=== PATIENT | male | born 1960 | race Asian ===

== ENCOUNTER 2017-09-08 12:48 | Outpatient (CLI) | payer OTHER ==
[2017-09-08 13:06] LABS: PLATELET COUNT 173 K/uL (142-355)
[2017-09-08 13:28] LABS: POTASSIUM 3.3 mmol/L (3.6-5.2)
== END 2017-09-08 23:04 | disposition home or self-care (01) ==
LOC: LABW 12:48
PROVIDERS: Family Medicine
DX: I63.9 Cerebral infarction, unspecified (principal); I10 Essential (primary) hypertension; M54.2 Cervicalgia; M54.5 Low back pain; G89.29 Other chronic pain; M10.071 Idiopathic gout, right ankle and foot
CPT/HCPCS: 36415; 80053; 80061; 81000; 82306; 82607; 82746; 83036; 83735; 84153; 84439; 84443; 84550; 85027; 87077; 87086; 87088; 87186

== ENCOUNTER 2017-10-13 16:39 | Outpatient (CLI) | payer OTHER | END 2017-10-13 18:21 | disposition home or self-care (01) | LOC: LABW 16:39 | DX: N45.3 Epididymo-orchitis (principal) | CPT/HCPCS: 87490; 87590 ==

== ENCOUNTER 2017-12-28 12:33 | Emergency (ER) | payer OTHER ==
[~2017-12-28] VITALS: Ht 157.5 cm; Wt 76.2 kg
[2017-12-28 12:48] VITALS: TEMP 98
[2017-12-28] MEDS ORDERED: LISI10TA11 PO (12:51)
[2017-12-28] MEDS ORDERED: AMLODIPINE BESYLATE PO (12:52)
[2017-12-28 13:16] LABS: PLATELET COUNT 191 K/uL (142-355)
[2017-12-28 13:23] LABS: POTASSIUM 3.4 mmol/L (3.6-5.2)
[2017-12-28 13:29] VITALS: BP 171/106
[2017-12-28 13:30] LABS: PARTIAL THROMBOPLASTIN TIME 27.6 SECONDS (24.5-33.6)
== END 2017-12-28 13:42 | disposition short-term general hospital (02) ==
LOC: ED 12:33
PROVIDERS: Emergency Medicine
DX: I61.9 Nontraumatic intracerebral hemorrhage, unspecified (principal)
CPT/HCPCS: 36415; 80053; 85027; 85610; 85730; 93005; 99285

== ENCOUNTER 2018-01-06 09:47 | Emergency (ER) | payer OTHER ==
[~2018-01-06] VITALS: Ht 160 cm; Wt 70.8 kg
[~2018-01-06 09:47] MED LIST: AMLODIPINE BESYLATE PO; LISI10TA11 PO
[2018-01-06 10:00] VITALS: TEMP 98
[2018-01-06 10:24] LABS: PLATELET COUNT 297 K/uL (142-355)
[2018-01-06 10:39] LABS: POTASSIUM 3.5 mmol/L (3.6-5.2)
[2018-01-06 10:50] LABS: PARTIAL THROMBOPLASTIN TIME 29.9 SECONDS (24.5-33.6)
[2018-01-06 11:00] VITALS: BP 187/133
== END 2018-01-06 11:19 | disposition short-term general hospital (02) ==
LOC: ED 09:47
PROVIDERS: Family Medicine
DX: I62.9 Nontraumatic intracranial hemorrhage, unspecified (principal)
CPT/HCPCS: 80053; 85027; 85610; 85730; 93005; 96374; 96376; 99285; J0360

== ENCOUNTER 2018-08-26 00:15 | Inpatient (IN) | payer OTHER ==
[2018-08-26] VITALS (25 sets, daily range): BP systolic 103–149; BP diastolic 59–98; TEMP 97–99.3; Ht 160 cm; Wt 75.0 kg
[~2018-08-26] VITALS: Ht 160 cm; Wt 75.0 kg
[2018-08-26 00:58] LABS: PLATELET COUNT 177 K/uL (142-355)
[2018-08-26 01:08] LABS: POTASSIUM 3.7 mmol/L (3.6-5.2)
[2018-08-26] MEDS ORDERED: NEURONTIN 100M100 MG PO (02:59)
[2018-08-26] MEDS ORDERED: LISI10TA11 PO (03:00)
[2018-08-26] MEDS ORDERED: FURO20TA67 PO (03:01)
[2018-08-26 06:47] LABS: POTASSIUM 4.5 mmol/L (3.6-5.2)
[2018-08-26] MEDS ORDERED: CLONIDINE0.2 MG/24 TD (11:55)
[2018-08-26] MEDS ORDERED: OXYCODONE30 MG PO (11:57)
[2018-08-26] MEDS ORDERED: CARV25TA PO (11:59)
[2018-08-26] MEDS ORDERED: SPIRONOLACT25 MG PO (12:04)
[2018-08-26] MEDS ORDERED: ALBU0.0813 INH (12:09)
[2018-08-26] MEDS ORDERED: VIAGRA100 MG PO (12:12)
[2018-08-26] MEDS ORDERED: CHLORTHALID25 MG PO (12:14)
[2018-08-26] MEDS ORDERED: COLCHICINE0.6 MG PO (12:15)
[2018-08-26 16:35] LABS: PLATELET COUNT 182 K/uL (142-355)
[2018-08-26 16:42] LABS: POTASSIUM 4.3 mmol/L (3.6-5.2)
[2018-08-27] VITALS (15 sets, daily range): BP systolic 105–178; BP diastolic 60–100; TEMP 98.1–98.7
[2018-08-27 06:16] LABS: POTASSIUM 4.1 mmol/L (3.6-5.2)
[2018-08-27 06:32] LABS: PLATELET COUNT 176 K/uL (142-355)
[2018-08-28] VITALS: BP 143/85; TEMP 97.8
[2018-08-28 04:00] VITALS: BP 146/86; TEMP 98.4
[2018-08-28 05:20] LABS: PLATELET COUNT 192 K/uL (142-355)
[2018-08-28 05:46] LABS: POTASSIUM 3.6 mmol/L (3.6-5.2)
[2018-08-28 08:00] VITALS: BP 168/105; TEMP 97.7
[2018-08-28 12:00] VITALS: BP 152/102; TEMP 97.6
[2018-08-28 16:00] VITALS: BP 170/100; TEMP 97.5
[2018-08-28 20:17] VITALS: BP 150/80; TEMP 98.6
[2018-08-29] VITALS: BP 158/88; TEMP 98.3
[2018-08-29 04:20] VITALS: BP 184/79; TEMP 98.5
[2018-08-29 08:00] VITALS: BP 180/110; TEMP 97.5
[2018-08-29 11:39] VITALS: BP 150/110; TEMP 97.5
== END 2018-08-29 12:50 | disposition home or self-care (01) | DRG 683 ==
LOC: ED 00:15 → ICU 01:40 → MED/SURG 08-27 15:54
PROVIDERS: Family Medicine; Pediatrics; ADMIT Emergency Medicine
DX: N17.9 Acute kidney failure, unspecified (principal); I69.351 Hemiplegia and hemiparesis following cerebral infarction affecting right dominant side; E86.9 Volume depletion, unspecified; N28.89 Other specified disorders of kidney and ureter; I10 Essential (primary) hypertension; R05 Cough; D72.828 Other elevated white blood cell count; F17.210 Nicotine dependence, cigarettes, uncomplicated; M10.9 Gout, unspecified; D64.89 Other specified anemias; E87.8 Other disorders of electrolyte and fluid balance, not elsewhere classified
CPT/HCPCS: 36415; 51702; 80048; 80053; 81000; 83605; 83735; 85027; 87070; 87205; 87899; 93005; 94640; 94664; 94760; 96361; 96365; 96375; 99285; J0696; J2930; Q9963

== ENCOUNTER 2018-12-01 14:57 | Outpatient (CLI) | payer OTHER ==
[~2018-12-01 14:57] MED LIST changes: +ALBU0.0813 INH; +CARV25TA PO; +CHLORTHALID25 MG PO; +CLONIDINE0.2 MG/24 TD; +COLCHICINE0.6 MG PO; +FURO20TA67 PO; +NEURONTIN 100M100 MG PO; +OXYCODONE30 MG PO; +SPIRONOLACT25 MG PO; +VIAGRA100 MG PO
== END 2018-12-01 20:16 | disposition home or self-care (01) ==
LOC: RAD 14:57
DX: J40 Bronchitis, not specified as acute or chronic (principal)